=== PATIENT | female | born 1965 | race Caucasian/White ===

== ENCOUNTER 2024-02-23 22:47 | Emergency (ER) | payer SELFPAY ==
[2024-02-24] MEDS ORDERED: Lidocaine 1% w/Epinephrine 1:200K 30 ML VIAL ONE (02:49)
[2024-02-24] MEDS ORDERED: Bupivacaine PF 0.5% 30 ML VIAL ONE (02:58)
== END 2024-02-24 04:27 | disposition home or self-care (01) ==
LOC: CSHERS 22:47
DX: S01.01XA Laceration without foreign body of scalp, initial encounter (principal); F17.290 Nicotine dependence, other tobacco product, uncomplicated; W19.XXXA Unspecified fall, initial encounter
CPT/HCPCS: 70450; 72125; J0665